=== PATIENT | male | born 1960 | race Caucasian/White ===

== ENCOUNTER 2017-07-12 14:22 | Emergency (ER) | payer MEDICAID ==
[2017-07-12] MEDS ORDERED: Labetalol 20 MG/4 ML Syringe ONE (14:43)
[2017-07-12] MEDS ORDERED: Labetalol 20 MG/4 ML Syringe IVPUSH ONE (14:43)
--- NOTE | 2017-07-12 14:53 | EDM.PDOC ---
ED HPI GENERAL MEDICAL PROBLEM - General Chief Complaint: Neuro Symptoms/Deficits Stated Complaint: MONIKA HARMAN Time Seen by Provider: 07/12/17 14:42 Source of Information: Reports: Patient, EMS History Limitations: Reports: No Limitations - History of Present Illness INITIAL COMMENTS - FREE TEXT/NARRATIVE: Patient brought in via EMS after a call from his worksite of a possible seizure or stroke. EMS reports equal strength, pupils, but does have nonsensical speech. He does have a history of prior seizure activity and prior traumatic brain injury. Little medical background as the patient does deny any medical problems. He is alert and answering questions appropriately. He does have hypertension. He does not want to be treated and is stating as such; however we do need to rule out life threatening conditions. This was explained to him and he has consented to initial treatment. Onset: Today, Sudden Associated Symptoms: Reports: No Other Symptoms ED ROS GENERAL - Review of Systems Review Of Systems: See Below Constitutional: Reports: No Symptoms HEENT: Reports: No Symptoms Respiratory: Reports: No Symptoms Cardiovascular: Reports: No Symptoms Endocrine: Reports: No Symptoms GI/Abdominal: Reports: No Symptoms : Reports: No Symptoms Musculoskeletal: Reports: No Symptoms Skin: Reports: No Symptoms Neurological: Reports: No Symptoms Psychiatric: Reports: No Symptoms Hematologic/Lymphatic: Reports: No Symptoms Immunologic: Reports: No Symptoms ED EXAM, NEURO - Physical Exam Exam: See Below Exam Limited By: No Limitations General Appearance: Alert, WD/WN, Anxious Eye Exam: Bilateral Eye: PERRL Ears: Normal External Exam, Normal Canal, Hearing Grossly Normal, Normal TMs Nose: Normal Inspection, Normal Mucosa, No Blood Throat/Mouth: Normal Inspection, Normal Lips, Normal Teeth, Normal Gums, Normal Oropharynx, Normal Voice, No Airway Compromise Head Exam: Atraumatic, Normocephalic Neck: Normal Inspection, Supple, Non-Tender, Full Range of Motion Respiratory/Chest: No Respiratory Distress, Lungs Clear, Normal Breath Sounds, No Accessory Muscle Use, Chest Non-Tender Cardiovascular: Normal Peripheral Pulses, Regular Rate, Rhythm, No Edema, No Gallop, No JVD, No Murmur, No Rub GI/Abdominal: Normal Bowel Sounds, Soft, Non-Tender, No Organomegaly, No Distention, No Abnormal Bruit, No Mass Neurological: Alert, Normal Mood/Affect, Normal Dorsiflexion, CN II-XII Intact, Normal Plantar Flexion, Normal Gait, Normal Reflexes, No Motor/Sensory Deficits , Oriented x 3 Back Exam: Normal Inspection, Full Range of Motion, NT Extremities: Normal Inspection, Normal Range of Motion, Non-Tender, No Pedal Edema, Normal Capillary Refill Psychiatric: Normal Affect, Normal Mood Skin Exam: Warm, Dry, Intact, Normal Color, No Rash Comments: Patient is slightly combative and refusing further treatment stating he can't afford any treatments. Course - Orders/Labs/Meds Orders: Active Orders 24 hr Category Date Time Status EKG Documentation Completion [RC] URGENT Care 07/12/17 14:43 Active Head wo Cont [CT] Routine Exams 07/12/17 14:29 Taken Labs: Laboratory Tests 07/12/17 07/12/17 07/12/17 Range/Units 14:32 14:32 14:32 WBC 5.2 (4.0-10.0) x10^3/uL RBC 5.01 (4.5-6.0) x10^6/uL Hgb 15.3 (14.0-18.0) g/dL Hct 46.4 (40.0-52.0) % MCV 92.6 (78.0-93.0) fL MCH 30.5 (26.0-32.0) pg MCHC 33.0 (32.0-36.0) g/dL RDW Coeff of Tata 14.9 (10.0-15.0) % Plt Count 219 (130-400) x10^3/uL Neut % (Auto) 65.2 (50.0-80.0) % Lymph % (Auto) 19.2 L (25.0-50.0) % Emmet % (Auto) 14.8 H (2.0-11.0) % Eos % (Auto) 0.4 (0.0-4.0) % Baso % (Auto) 0.4 (0.2-1.2) % PT 10.6 (9.6-11.4) SEC INR 1.0 L (2.0-3.5) APTT 25.4 (21.3-33.5) SEC Sodium 141 (136-145) mmol/L Potassium 3.8 (3.5-5.1) mmol/L Chloride 103 (98-107) mmol/L Carbon Dioxide 27 (21-32) mmol/L Anion Gap 14.8 (10-20) mmol/L BUN 10 (7-18) mg/dL Creatinine 0.9 (0.70-1.30) mg/dL Est Cr Clr Drug Dosing TNP Estimated GFR (MDRD) > 60 Glucose 165 H (74-106) mg/dL Calcium 8.5 (8.5-10.1) mg/dL Corrected Calcium 8.34 L (8.5-10.1) mg/dL Magnesium 1.8 (1.8-2.4) mg/dL Total Bilirubin 0.7 (0.2-1.0) mg/dL AST 28 (15-37) U/L ALT 27 (16-63) U/L Alkaline Phosphatase 65 (46-116) U/L Creatine Kinase 303 (39-308) U/L POC Troponin I (0.00-0.08) ng/mL Total Protein 7.9 (6.4-8.2) g/dL Albumin 4.2 (3.4-5.0) g/dL Globulin 3.7 Albumin/Globulin Ratio 1.14 Ethyl Alcohol (0-3) mg/dL 07/12/17 07/12/17 Range/Units 14:32 14:36 WBC (4.0-10.0) x10^3/uL RBC (4.5-6.0) x10^6/uL Hgb (14.0-18.0) g/dL Hct (40.0-52.0) % MCV (78.0-93.0) fL MCH (26.0-32.0) pg MCHC (32.0-36.0) g/dL RDW Coeff of Tata (10.0-15.0) % Plt Count (130-400) x10^3/uL Neut % (Auto) (50.0-80.0) % Lymph % (Auto) (25.0-50.0) % Emmet % (Auto) (2.0-11.0) % Eos % (Auto) (0.0-4.0) % Baso % (Auto) (0.2-1.2) % PT (9.6-11.4) SEC INR (2.0-3.5) APTT (21.3-33.5) SEC Sodium (136-145) mmol/L Potassium (3.5-5.1) mmol/L Chloride (98-107) mmol/L Carbon Dioxide (21-32) mmol/L Anion Gap (10-20) mmol/L BUN (7-18) mg/dL Creatinine (0.70-1.30) mg/dL Est Cr Clr Drug Dosing Estimated GFR (MDRD) Glucose (74-106) mg/dL Calcium (8.5-10.1) mg/dL Corrected Calcium (8.5-10.1) mg/dL Magnesium (1.8-2.4) mg/dL Total Bilirubin (0.2-1.0) mg/dL AST (15-37) U/L ALT (16-63) U/L Alkaline Phosphatase (46-116) U/L Creatine Kinase (39-308) U/L POC Troponin I 0.01 (0.00-0.08) ng/mL Total Protein (6.4-8.2) g/dL Albumin (3.4-5.0) g/dL Globulin Albumin/Globulin Ratio Ethyl Alcohol < 3 (0-3) mg/dL Meds: Medications Discontinued Medications Generic Name Dose Route Start Last Admin Trade Name Freq PRN Reason Stop Dose Admin Labetalol HCl Confirm 07/12/17 14:43 Normodyne Administered 07/12/17 14:44 Dose 20 mg .ROUTE .STK-MED ONE Labetalol HCl 20 mg 07/12/17 14:43 Normodyne IVPUSH 07/12/17 14:44 NOW ONE Protocol Departure - Departure Time of Disposition: 15:20 Disposition: Against Medical Advice 07 Condition: Good Clinical Impression: Seizure - Discharge Information Instructions: Non-Epileptic Seizures, Adult, Alcohol Withdrawal, [id number] Referrals: PCP,None [Primary Care Provider] - Forms: ED Department Discharge Additional Instructions: You should follow up with a primary doctor at your earliest convenience. You do have a history of alcohol withdrawals so you should have treatment. You also had some seizures today that could be related to not having any alcohol. Your high blood pressure should also be addressed with primary care. I do recommend you stay here for further treatment and observation. By leaving now you are leaving against medical advice. - Problem List & Annotations (1) Seizure SNOMED Code(s): 91422649 Code(s): R56.9 - UNSPECIFIED CONVULSIONS Status: Acute Priority: Low - Problem List Review Problem List Initiated/Reviewed/Updated: Yes - My Orders Last 24 Hours: My Active Orders 07/12/17 14:29 Head wo Cont [CT] Routine 07/12/17 14:43 EKG Documentation Completion [RC] URGENT - Assessment/Plan Last 24 Hours: My Active Orders 07/12/17 14:29 Head wo Cont [CT] Routine 07/12/17 14:43 EKG Documentation Completion [RC] URGENT Assessment:: seizures alcohol withdrawal Plan: You should follow up with a primary doctor at your earliest convenience. You do have a history of alcohol withdrawals so you should have treatment. You also had some seizures today that could be related to not having any alcohol. Your high blood pressure should also be addressed with primary care. I do recommend you stay here for further treatment and observation. By leaving now you are leaving against medical advice.
[2017-07-12 15:00] LABS: CHLORIDE,CL 103 mmol/L (98-107); SODIUM,NA 141 mmol/L (136-145)
== END 2017-07-12 15:20 | disposition left against medical advice (07) ==
LOC: VM.ED 14:22
DX: R56.9 Unspecified convulsions (principal); F10.239 Alcohol dependence with withdrawal, unspecified; Y90.0 Blood alcohol level of less than 20 mg/100 ml; I10 Essential (primary) hypertension
CPT/HCPCS: 36415; 70450; 80053; 82550; 83735; 84484; 85025; 85610; 85730; 93005; 96374; 99285; G0480; J3490